=== PATIENT | female | born 1935 | race American Indian/Alaskan Native ===

== ENCOUNTER 2016-10-29 16:32 | Emergency (ER) | payer MEDICAID ==
[2016-10-29 17:02] LABS: Basophils % (Auto) 0.3 % (0.0-1.8); Eosinophils % (Auto) 1.6 % (0.0-4.3); Hematocrit 43.5 % (30.3-42.9); Hemoglobin 13.9 gm/dl (10.1-14.3); Mean Corpuscular HGB Conc 32 % (30-34); Mean Corpuscular Hemoglobin 28 pg (28-32); Mean Corpuscular Volume 89 fl (79-97); Platelet Count 195 K/mm3 (140-440); Red Cell Distribution Width 13.7 % (13.2-15.2)
[2016-10-29 17:24] LABS: Alanine Aminotransferase 15 units/L (7-56); Albumin 4.2 g/dL (3.9-5); Albumin/Globulin Ratio 1.4 %; Alkaline Phosphatase 83 units/L (35-129); Anion Gap 16 mmol/L; BUN/Creatinine Ratio 11.11; Blood Urea Nitrogen 10 mg/dL (7-17); Calcium 9.1 mg/dL (8.4-10.2); Carbon Dioxide 27 mmol/L (22-30); Chloride 100.9 mmol/L (98-107); Glucose 189 mg/dL (65-100); Sodium 139 mmol/L (137-145); Total Protein 7.2 g/dL (6.3-8.2)
[2016-10-29 19:28] VITALS: BP 171/77
[2016-10-29] MEDS ORDERED: ZOFRAN ODT PO ONE (20:15)
[2016-10-29] MEDS ORDERED: TYLENOL #3 PO ONE (20:15)
--- NOTE | 2016-10-29 22:21 | Emergency Department Report ---
HPI - General Chief Complaint: Extremity Problem,Nontraumatic Time Seen by Provider: 10/29/16 19:36 - HPI HPI: Patient is 80-year-old female presents for evaluation of neck pain and swelling. The patient reports left lower leg swelling and pain for the past one week, 5/10 in severity, aching in quality, exacerbated with ambulation, and improve her rest. The patient denies fever, trauma to the ankle, redness, paresthesias, motor deficit. ED Past Medical Hx - Past Medical History Previous Medical History?: Yes Hx Hypertension: Yes Hx Diabetes: Yes Additional medical history: HIGH CHOLESTEROL - Surgical History Past Surgical History?: No - Social History Smoking Status: Never Smoker Substance Use Type: None - Medications Home Medications: Home Medications Medication Instructions Recorded Confirmed Last Taken Type traMADol [Ultram 50 MG tab] 50 mg PO Q6HR PRN #15 tablet 10/29/16 Unknown Rx ED Review of Systems ROS: Stated complaint: DIABETIC, LEFT FOOT SWOLLEN Other details as noted in HPI Constitutional: denies: fever ENT: denies: throat or neck pain Respiratory: denies: cough, shortness of breath Cardiovascular: denies: chest pain Endocrine: denies unexplained weight loss or gain Gastrointestinal: denies: abdominal pain, nausea Genitourinary: denies: dysuria Musculoskeletal: reports left leg pain and swelling Skin: denies: rash Neurological: denies: headache Hematological/Lymphatic: denies: easy bleeding or easy bruising Psych: denies sadness or hopelessness Physical Exam - Physical Exam Vital Signs: Vital Signs 10/29/16 10/29/16 10/29/16 16:43 19:27 19:43 Temperature 99.3 F Pulse Rate 80 72 Respiratory 18 14 14 Rate Blood Pressure 151/63 Blood Pressure 171/77 [Left] O2 Sat by Pulse 98 Oximetry Physical Exam: General: well-nourished, well-developed, no acute distress Head: Normocephalic, atraumatic Eyes: normal sclera ENT: Mucous membranes are pink and moist Respiratory: Breath sounds equal bilaterally, no wheezing, rales, or rhonchi Cardio: S1 and S2 present, no murmurs, rubs, gallops, capillary refill is brisk Musc: Left ankle lateral malleolus tenderness to palpation present, mild swelling present, no obvious deformity, distal sensation and motor function intact, distal pulses intact Skin: No rash Neuro: no facial drooping, normal speech Psych: Normal affect ED Course Vital Signs 10/29/16 10/29/16 10/29/16 16:43 19:27 19:43 Temperature 99.3 F Pulse Rate 80 72 Respiratory 18 14 14 Rate Blood Pressure 151/63 Blood Pressure 171/77 [Left] O2 Sat by Pulse 98 Oximetry ED Medical Decision Making - Lab Data Result diagrams: 10/29/16 16:53 10/29/16 16:53 - Medical Decision Making The patient was seen and examined by myself. The patient is placed on a surveillance system monitor and continuous pulse ox. On initial evaluation, the patient was found to be in no distress. Evaluation orders were placed. The patient is given a tablet of Tylenol 3 for pain. Lab results revealed mild hyperglycemia, glucose 189, and otherwise labs are unremarkable. Ultrasound of the left lower shares negative for DVT. X-ray of the left ankle is negative for fracture, subluxation, other malalignment, or periosteal elevation. The patient was reevaluated and reported that their symptoms were markedly improved. The patient is stable for discharge with outpatient follow-up. The patient is given follow-up and return instructions. The patient expressed understanding and agreed with the plan. The patient is discharged in stable condition. Critical care attestation.: If time is entered above; I have spent that time in minutes in the direct care of this critically ill patient, excluding procedure time. ED Disposition Clinical Impression: Acute left ankle pain, Pain and swelling of left lower leg Disposition: DC-01 TO HOME OR SELFCARE Is pt being admited?: No Does the pt Need Aspirin: No Condition: Stable Instructions: Leg Edema (ED), Arthralgia (ED) Prescriptions: traMADol [Ultram 50 MG tab] 50 mg PO Q6HR PRN #15 tablet PRN Reason: Pain Referrals: [facility] [Other] - 3-5 Days THU GARCIA MD [Staff Physician] - 3-5 Days Time of Disposition: :17
--- NOTE | 2016-10-30 08:29 | XRay Report ---
Left ankle 3 views: History: Left ankle pain. 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 No fracture dislocation or soft tissue calcification. Smaller posterior superior and inferior calcaneum. Impression: Findings as detailed above. No acute changes.
--- NOTE | 2016-10-30 10:51 | Vascular Lab Report ---
Left Lower Extremity Venous Duplex Study: Reason for Exam: Pain of the left lower extremity. Comments on the Right: A limited duplex study was done of the proximal veins of the right lower extremity. All veins visualized are freely compressible without evidence of internal echogenicity. Flow is spontaneous and phasic throughout. No evidence of acute or chronic thrombus is seen in any of the vessels visualized. Comments on the Left: All veins visualized are freely compressible without evidence of internal echogenicity. Flow is spontaneous and phasic throughout. No evidence of acute or chronic thrombus is seen in any of the vessels visualized. Impression: No evidence of acute or chronic deep venous thrombosis in the left lower extremity.
== END 2016-10-29 22:31 | disposition home or self-care (01) ==
LOC: ED 16:32
DX: M25.572 Pain in left ankle and joints of left foot (principal); M79.605 Pain in left leg; M79.89 Other specified soft tissue disorders; I10 Essential (primary) hypertension; E11.9 Type 2 diabetes mellitus without complications
CPT/HCPCS: 36415; 80053; 85025; Q0162